=== PATIENT | female | born 1945 | race Caucasian/White ===

== ENCOUNTER 2020-07-07 11:19 | Outpatient (REF) | payer MEDICARE, OTHER, SELFPAY ==
--- NOTE | 2020-07-07 13:13 | MHC.AU.P13 ---
Adult Audiological Evaluation Date of Visit: 07/07/20 Reason for Appointment: Patient has noticed increased difficulty hearing and understanding in situations with multiple people and background noise. Does patient feel they have a hearing loss?: Yes If Yes, Which Ear?: Both Ears Has hearing been tested previously?: No Hearing Handicap Inventory: HHIE SCORE: 12 Based on HHIE score, patient has: Mild to moderate perceived hearing handicap Ear History: Recent Ear Drainage: None Reported Recent Ear Pain: None Reported Bothersome Tinnitus/Ringing/Noises in Ears: Intermittent but frequent Ear used on the phone: Right Ear Medical History: Medical History: Hypertension. 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 Otoscopy: Right Ear: Unremarkable Left Ear: Unremarkable Tympanometry: Right Ear: Normal Middle Ear System (Type A) Left Ear: Normal Middle Ear System (Type A) Hearing Evaluation: Right Ear: Description of Hearing: Mild to moderately-severe sensorineural hearing loss Left Ear: Description of Hearing: Mild to moderately-severe sensorineural hearing loss Speech Recognition Threshold (SRT): Method Used: Recorded Lists Stimuli Used: Spondee Words Right Ear: 35 dBHL Left Ear: 30 dBHL Word Discrimination: Method: Recorded Lists Word Lists Used: NU-6 Right Ear: 84% at 65 dBHL Left Ear: 96% at 60 dBHL Most Comfortable Level (MCL): Right Ear: 65 dBHL Left Ear: 60 dBHL Recommendations: Audiological re-evaluation in one year. Patient does not feel they are ready for amplification at this time. Diagnosis: Primary Diagnosis: H90.3 Bilateral Sensorineural Hearing Loss Services Performed: Services Performed: Comprehensive Audiological Evaluation (CPT 52315) Tympanometry (CPT 04576) Signature: Provider: Juanito Carlos, CCC-A
== END 2020-07-07 11:20 | disposition home or self-care (01) ==
LOC: HO.SH 11:19
PROVIDERS: PCP Internal Medicine; Referring Provider Internal Medicine; Visit Provider Internal Medicine
DX: H90.3 Sensorineural hearing loss, bilateral (principal)
CPT/HCPCS: 92557; 92567